=== PATIENT | female | born 1995 | race African-American/Black ===

== ENCOUNTER 2017-03-15 10:53 | Observation (INO) ==
[2017-03-15] MEDS ORDERED: Ondansetron 4 MG/2 ML VIAL IVP PRN (13:05)
[2017-03-15] MEDS ORDERED: Acetaminophen 325 MG TABLET PO PRN (13:05)
[2017-03-15] MEDS: *HR* HYDROcodone/Acet 7.5/325 mg TABLET PO PRN ×2 (13:31→19:58)
[2017-03-15] MEDS: Ringers Solution, Lactated 1,000 ML IVC SCH (13:59)
[2017-03-15] MEDS: Dexamethasone 10 MG/ML VIAL IVP SCH ×2 (13:59→21:36)
[2017-03-15] MEDS: Ampicillin/Sulbactam 3,000 MG in 0.9 % Sodium Chloride Mini Bag 100 ML IVPB SCH (17:27)
--- NOTE | 2017-03-15 17:32 | ENT - History & Physical ---
Date of Encounter: 03/15/17 Time of Encounter: 13:00 Assessment and Plan (1) Peritonsillar abscess Current Visit: Yes Status: Acute Unable to drain at the bedside. Will place patient under observation due to possible airway compromise. If no improvement after IV steroids and antibioitics will schedule for adult tonsillectomy. The assessment and plan as outlined above was discussed with the patient and/or family members who expressed understanding and agreement. All questions were answered. (2) Acute airway obstruction Current Visit: Yes Status: Acute Will monitor patient for any further compromise of the airway due to swelling of the tonsils. The assessment and plan as outlined above was discussed with the patient and/or family members who expressed understanding and agreement. All questions were answered. History of Present Illness Chief complaint: Peritonsillar abscess HPI: Ms. Daigle is a 21 year old female who was sent to my office from her primary care physician for possible peritonsillar abscess. Patient was fullness of the right tonsil pillar and significant swelling causing partial obstruction of the airway and dysphagia. Patient previously treated for strep tonsillitis and symptoms recurred rapidly after she was off antibiotics. Patient was significant trouble swallowing secondary to enlargement of the tonsils. Patient denies any previous tonsillar abscess or recurrent strep infections in the past. I&D was attempted in the office by was not successful in obtaining a large amount of pus. Past Med Surg Social Fam HX - Social History Smoking Status: Never smoker Smokeless Tobacco Status: No Alcohol use: occasionally Drug use: none Medications and Allergies D-Methorphan/Acetamin/Doxylamn [Vicks Nyquil Liquicaps] 1 cap PO HS PRN [History] D-Methorphan/PE/Acetaminophen [Vicks Dayquil Liquicaps] 1 cap PO DAILY PRN 03/15 [History] Ibuprofen [Motrin] 400 mg PO Q6HR PRN 03/15/17 [History] Norgestimate-Ethinyl Estradiol [Sprintec 28 Day Tablet] 1 tab PO DAILY 03/15/17 [History] Allergies No Known Allergies Allergy (Verified 03/15/17 12:16) ENT - ROS - Constitutional Constitutional ROS: as per HPI - EENT Nose, mouth and throat: dysphagia, sore throat, throat swelling - Cardiovascular Cardiovascular ROS IM: no chest pain - Respiratory as per HPI, no dyspnea, no dyspnea on exertion, no wheezing, no stridor - Gastrointestinal Gastrointestinal: dysphagia, no heartburn, no nausea, no vomiting - Genitourinary Genitourinary ROS: no difficulty urinating - Musculoskeletal Musculoskeletal ROS: no muscle weakness, no myalgias, no neck pain ENT Exam Initial Vital Signs Temp Pulse Resp BP Pulse Ox 98.7 F 83 18 126/79 99 03/15/17 11:47 03/15/17 11:47 03/15/17 11:47 03/15/17 11:47 03/15/17 11:47 - General physical appearance well developed, well nourished, moderate pain - Eyes PERRL, normal ocular movement - ENT normal pinna, normal nares, Other (Ears: EACs clear middle ear well aerated without effusion bilaterally. Nose: Nares patent nasal mucosa without lesion septum midline. Mouth external lips and gums normal teeth are in good repair tonsils with significant enlargement and exudate present bilaterally. Right tonsil with displacement both medially and inferiorly, soft palate with fullness in the right tonsil pillar, uvular deviation to the left.) - Neck no bruits, trachea midline, no venous distension, other (Shotty lymph nodes jugular digastric chain bilaterally) - Respiratory normal expansion, normal respiratory effort - Neurologic CN 2-12 grossly intact, normal coordination, normal sensation - Psychiatric oriented to time, oriented to person, oriented to place - Additional Findings Hot potato voice present Results - Labs All other labs normal.
[2017-03-16] MEDS: Ampicillin/Sulbactam 3,000 MG in 0.9 % Sodium Chloride Mini Bag 100 ML IVPB SCH ×2 (00:01→05:36)
[2017-03-16] MEDS: *HR* HYDROcodone/Acet 7.5/325 mg TABLET PO PRN (00:02)
[2017-03-16] MEDS: Ringers Solution, Lactated 1,000 ML IVC SCH (04:11)
[2017-03-16] MEDS: Dexamethasone 10 MG/ML VIAL IVP SCH (05:33)
[2017-03-16 07:16] VITALS: BP 108/69
[2017-03-16] MEDS ORDERED: NORGESTIMATE ETHINYL ESTRADIOL PO SCH (09:00)
--- NOTE | 2017-03-16 09:14 | Discharge Summary ---
Date of Encounter: 03/16/17 Time of Encounter: 09:12 - Discharge Diagnosis (1) Peritonsillar abscess Priority: Primary Status: Acute Comments: Peritonsillar swelling has improved significantly after 3 doses of IV antibiotics and steroids. Patient deemed appropriate for discharge home and she is tolerating fluids without difficulty and no compromise to her airway. Will discharge home on by mouth Augmentin as well as prednisone. Will have patient follow up in 2 weeks for recheck. Would recommend tonsillectomy at a later date once this infection has resolved. (2) Acute airway obstruction Priority: Primary Status: Acute - Discharge Medications Prescriptions: Amoxicillin/Clavulanate [Augmentin] 875 mg PO BID #28 tablet PredniSONE 40 mg PO DAILY #8 tablet Home Medications: D-Methorphan/Acetamin/Doxylamn [Vicks Nyquil Liquicaps] 1 cap PO HS PRN [History] D-Methorphan/PE/Acetaminophen [Vicks Dayquil Liquicaps] 1 cap PO DAILY PRN 03/15 [History] Ibuprofen [Motrin] 400 mg PO Q6HR PRN 03/15/17 [History] Norgestimate-Ethinyl Estradiol [Sprintec 28 Day Tablet] 1 tab PO DAILY 03/15/17 [History] Amoxicillin/Clavulanate [Augmentin] 875 mg PO BID #28 tablet 03/16/17 [Rx] PredniSONE 40 mg PO DAILY #8 tablet 03/16/17 [Rx] Allergies/Adverse Reactions: Allergies No Known Allergies Allergy (Verified 03/15/17 12:16) Labs on day of discharge: Labs from last 24 hours 03/16/17 03/15/17 05:06 17:13 POC Glucose 155 H 139 H Date of admission: 03/15/17 11:23 Primary care physician: Emily Toure CNP Discharging clinician: Renetta Gary Anticipated date of discharge: 03/16/17 - Patient Status Disposition: Home, Self-Care Condition: Good Overall status at discharge: patient is progressing back to baseline - Discharge Instructions Instructions: Peritonsillar Abscess (DC) Follow Up With: Emily Toure CNP [Primary Care Provider] - Renetta Gary DO [Non-Partnered Physician] - - Diet and Activity Activity: increase activity as tolerated Diet: advance to your usual diet - Hospital Course Hospital course: Ms. Daigle is a 21 year old female who was seen in the office for peritonsillar abscess in the right peritonsillar region. Attempted I&D in the office was performed and scant purulence was obtained. Due to possible airway compromise patient was admitted for observation and IV antibiotics and steroids. Patient was significant decrease in airway swelling after 3 doses of antibiotics as well as steroids. Due to improvement in the airway patient did not appropriate for discharge home on continued by mouth antibiotics as well as steroids. - Time Spent with Patient Total time spent providing and/or coordinating discharge services: 25 Less than 30 minutes ENT Exam Initial Vital Signs Temp Pulse Resp BP Pulse Ox 98.7 F 83 18 126/79 99 03/15/17 11:47 03/15/17 11:47 03/15/17 11:47 03/15/17 11:47 03/15/17 11:47 - Eyes PERRL, loss of movement (Strabismus present) - ENT normal pinna, normal nares, Other (Tonsils are enlarged bilaterally with right tonsil being 3+ and the left tonsil being 2+. No exudate today on the tonsils which is improved from yesterday. Uvula with decreased edema and now midline. Airway widely patent. ) - Neck no masses, trachea midline - Respiratory normal expansion, normal respiratory effort - Neurologic CN 2-12 grossly intact, normal coordination - Psychiatric oriented to time, oriented to person, oriented to place
== END 2017-03-16 10:00 | disposition home or self-care (01) ==
LOC: 3ANU
PROVIDERS: ADMIT Otolaryngology Facial Plastic Surgery; ATTEND Otolaryngology Facial Plastic Surgery